=== PATIENT | male | born 1995 | race Caucasian/White ===

== ENCOUNTER 2018-06-22 16:34 | Emergency (ER) | payer OTHER ==
[2018-06-22 16:49] VITALS: BP 118/68
--- NOTE | 2018-06-22 17:04 | UC ---
HPI Wound/Suture Re-check - HPI Summary HPI Summary: 22 year old male presents for wound check and suture removal. States on 2017 had a cyst removed from behind his right ear by provider in [place] and instructed to have sutures removed in 10 days. Denies fever, chills, pain, redness, swelling or discharge from wound. - History Of Current Complaint Chief Complaint: UCGeneralIllness Stated Complaint: SUTURE REMOVAL Time Seen by Provider: 06/22/18 16:45 Hx Obtained From: Patient Pain Intensity: 0 Procedure Type: cyst removal Surgery Date: 06/12/18 - Allergies/Home Medications Allergies/Adverse Reactions: Allergies Allergy/AdvReac Type Severity Reaction Status Date / Time No Known Allergies Allergy Verified 06/22/18 16:43 Home Medications: Home Medications NK [No Home Medications Reported] 06/22/18 [History Confirmed 06/22/18] PMH/Surg Hx/FS Hx/Imm Hx - Additional Past Medical History Additional PMH: noncontributory - Surgical History Surgical History: None - Family History Family History: noncontributory - Social History Occupation: Student Lives: Dormitory/Roommates Alcohol Use: Occasionally Substance Use Type: None Smoking Status (MU): Never Smoked Tobacco - Immunization History Most Recent Tetanus Shot: UTD Review of Systems Constitutional: Negative Skin: Other - see HPI Respiratory: Negative Cardiovascular: Negative Is Patient Immunocompromised?: No All Other Systems Reviewed And Are Negative: Yes Physical Exam Triage Information Reviewed: Yes Appearance: Well-Appearing, No Pain Distress, Well-Nourished Vital Signs: Initial Vital Signs Temp 98.3 F 06/22/18 16:44 Pulse 67 06/22/18 16:44 Resp 16 06/22/18 16:44 BP 118/68 06/22/18 16:44 Pulse Ox 97 06/22/18 16:44 Vital Signs Reviewed: Yes Neck: Positive: Supple, Nontender, No Lymphadenopathy Respiratory: Positive: Lungs clear, Normal breath sounds, No respiratory distress Cardiovascular: Positive: RRR, No Murmur Neurological: Positive: Alert Skin: Positive: Other - Well healed incision behind right ear lobe approximated with 3 interrupted sutures. No erythema, tenderness, edema, induration, fluctuance, or drainage noted. Procedures - Procedure Summary Procedure Summary: 3 interrupted sutures removed from well healed surgical incision behind ear lobe of right ear. Patient tolerated procedure well without complication. Course/Dx - Course Course Of Treatment: 22 year old male patient presents for suture removal. Had cyst removal from behind right ear lobe 06/12/2018. Incision well healed without evidence of infection. Sutures removed without complication. Continued wound care discussed with patient. Verbalizes understanding. - Differential Dx - Laceration/Wound Provider Diagnoses: cyst right ear, suture removal Discharge - Sign-Out/Discharge Documenting (check all that apply): Patient Departure All imaging exams completed and their final reports reviewed: No Studies - Discharge Plan Condition: Stable Disposition: HOME Patient Education Materials: Stitches Removal (ED) Referrals: No Primary Care Phys,NOPCP [Primary Care Provider] - - Billing Disposition and Condition Condition: STABLE Disposition: Home
== END 2018-06-22 17:13 | disposition home or self-care (01) ==
LOC: UCCORT 16:34
DX: Z48.817 Encounter for surgical aftercare following surgery on the skin and subcutaneous tissue (principal)
CPT/HCPCS: 99201; G0463